=== PATIENT | female | born 1985 | race Caucasian/White ===

== ENCOUNTER 2016-08-19 21:04 | Emergency (ER) | payer OTHER ==
[2016-08-19 21:26] VITALS: BP 109/73; PULSE 94; TEMP 97.6; BMI 43.4
--- NOTE | 2016-08-19 23:25 | PDOC ---
History of Present Illness - General History Source: Patient Exam Limitations: No Limitations - History of Present Illness Initial Comments: 08/19/16 23:50 The patient is a 30 year old female with significant past medical history of anemia and asthma (on albuterol prn, no previous hospital admissions/intubations ) who presents to the ED for multiple complaints. Patient reports about 2-3 months ago she was diagnosed with UTI and was prescribed antibiotics, which she felt did not work and subsequently developed bladder pain and frequency. Denies hematuria and dysuria. She was then prescribed a medication, which she is unsure of the name, and states she noted her urine was orange. 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 Patients reports having 2-3 weeks of diffuse bone pain that is persistent and worse in the lower back, pelvis, and bilateral legs. States taking tylenol and motrin for her symptoms with no improvement. Patient also reports dizziness with blurry vision a couple of weeks ago. At that time, [facility] where she was prescribed meclizine for vertigo. States after taking the meclizine her dizziness has worsen. Patient reports few days of left eye swelling, but no redness. Denies trauma to the area, but states her son has bilateral pink eye. Pt is (s/p 5 spontaneous abortions ranging from 8 to 14 weeks gestation) The patient denies fever, chills, cough, SOB, chest pain, and palpitations. The patient denies abdominal pain, nausea, vomiting, and diarrhea. Allergies: penicillin, azithromycin Social History: Current smoker (2-3 cigarettes daily). No alcohol or drug use reported. Past Surgical History: D&C x4, x1, gastric sleeve (2011), cholecystectomy, tonsillectomy PCP: Dr. Serena Mruray <Cassidy Leone - Last Filed: 08/19/16 23:50> - General History Source: Patient <Preet Sharma - Last Filed: 08/20/16 01:43> - General Chief Complaint: Pain, Acute Stated Complaint: BONES HURT Time Seen by Provider: 08/19/16 23:12 Past History <Cassidy Leone - Last Filed: 08/19/16 23:50> - Past Medical History Anemia: Yes Asthma: Yes Cancer: No Cardiac Disorders: No CVA: No COPD: No CHF: No Dementia: No Diabetes: No GI Disorders: No Disorders: No HTN: No Hypercholesterolemia: No Liver Disease: Yes (FATTY LIVER) Suicide Attempt (Hx): No Seizures: No Thyroid Disease: No - Surgical History Abdominal Surgery: Yes (4 D AND C, GASTRIC SLEEVE 2011) Appendectomy: No Cardiac Surgery: No Cholecystectomy: Yes Lung Surgery: No Neurologic Surgery: No Orthopedic Surgery: No - Immunization History Immunization Up to Date: Yes - Psycho/Social/Smoking Cessation Hx Anxiety: No Suicidal Ideation: No Smoking Status: No Smoking History: Current every day smoker Have you smoked in the past 12 months: No Number of Cigarettes Smoked Daily: 5 If you are a former smoker, when did you quit?: 04/2014 Information on smoking cessation initiated: No Hx Alcohol Use: No Drug/Substance Use Hx: No Substance Use Type: None Hx Substance Use Treatment: No <Preet Sharma - Last Filed: 08/20/16 01:43> - Past Medical History Allergies/Adverse Reactions: Allergies Allergy/AdvReac Type Severity Reaction Status Date / Time Penicillins Allergy Intermediate Rash Verified 08/19/16 21:21 azithromycin Allergy Verified 08/19/16 21:21 shellfish derived Allergy Verified 08/19/16 21:21 Home Medications: Ambulatory Orders Buspirone HCl [Buspar -] 5 mg PO BID 11/11/15 Gabapentin [Neurontin] 300 mg PO ONCE #20 capsule 08/20/16 Oxycodone HCl/Acetaminophen [Percocet 5-325 mg Tablet] 1 - 2 tab PO Q6H #20 tablet MDD 4 08/20/16 Review of Systems - Review of Systems Able to Perform ROS?: Yes Comments:: 08/19/16 23:51 CONSTITUTIONAL: Absent: fever, no chills, no fatigue EYES: +blurry vision, left eye swelling ENT: Absent: ear pain, no sore throat CARDIOVASCULAR: Absent: chest pain, no palpitations RESPIRATORY: Absent: cough, no SOB GI: Absent: abdominal pain, no nausea, no vomiting, no constipation, no diarrhea GENITOURINARY: +frequency, bladder pain Absent: dysuria, no hematuria MUSCULOSKELETAL: +diffuse bone pain SKIN: Absent: rash NEURO: +dizziness Absent: headache <EverarrCassidy starr - Last Filed: 08/19/16 23:50> *Physical Exam - Vital Signs Last Vital Signs Temp Pulse Resp BP Pulse Ox 97.6 F 94 H 16 109/73 100 08/19/16 21:22 08/19/16 21:22 08/19/16 21:22 08/19/16 21:22 08/19/16 21:22 - Physical Exam Comments: 08/19/16 23:51 GENERAL: Well-appearing, well-nourished. No apparent distress. HEENT: Normocephalic, atraumatic. PERRL, EOM intact. Mild swelling over the left eyelid. No injection. No conjunctival pallor. Sclera are non-icteric. CARDIOVASCULAR: Normal S1, S2. Regular rate and rhythm. PULMONARY: Clear to auscultation bilaterally. ABDOMEN: Soft, non-distended, non-tender. EXTREMITIES: Normal ROM in all four extremities. No gross deformities. SKIN: Warm, dry. No rash NEUROLOGICAL: No focal neurological deficits. <Cassidy Leone - Last Filed: 08/19/16 23:50> - Vital Signs Last Vital Signs Temp Pulse Resp BP Pulse Ox 97.6 F 94 H 16 109/73 100 08/19/16 21:22 08/19/16 21:22 08/19/16 21:22 08/19/16 21:22 08/19/16 21:22 <Preet Sharma - Last Filed: 08/20/16 01:43> ED Treatment Course - LABORATORY CBC & Chemistry Diagram: 08/19/16 23:59 08/19/16 23:59 <Preet Sharma - Last Filed: 08/20/16 01:43> Medical Decision Making - Medical Decision Making 08/20/16 01:31 Dr. Sharma: The scribe's documentation has been prepared under my direction and personally reviewed by me in its entirery. I confirm that the note above accurately reflects all work, treatment, procedures, and medical decision making performed by me. <Preet Sharma - Last Filed: 08/20/16 01:43> *DC/Admit/Observation/Transfer - Attestations Scribe Attestion: 08/19/16 23:51 Documentation prepared by Cassidy Leone, acting as medical data analyst for Preet Sharma MD/. <SulemaCassidy - Last Filed: 08/19/16 23:50> - Discharge Dispostion Admit: No <Preet Sharma - Last Filed: 08/20/16 01:43> Diagnosis at time of Disposition: Pain, Neuropathic pain - Discharge Dispostion Disposition: HOME Condition at time of disposition: Stable - Referrals Referrals: Serena Mcfadden MD [Primary Care Provider] - Saad Garcia DO [Staff Physician] - - Patient Instructions Printed Discharge Instructions: Neuropathic Pain Additional Instructions: Please follow up with the neurologist referred to you as soon as possible, along with your primary care. Avoid alcohol when taking any one of the prescribed medication.
[2016-08-20 00:14] LABS: BASOPHIL 0.7 % (0-2.0); EOSINOPHIL 1.9 % (0-4.5); MCH 23.2 pg (25.7-33.7); MCHC 31.2 g/dl (32.0-36.0); MEAN CELL VOLUME 74.4 fl (80-96); MEAN PLT VOLUME 7.3 fl (7.5-11.1); NEUTROPHILS 59.4 % (42.8-82.8); PLATELET COUNT 431 K/MM3 (134-434); RDW 16.8 % (11.6-15.6); WHITE BLOOD COUNT 12.6 K/mm3 (4.0-10.0)
[2016-08-20 00:32] LABS: URINE APPEARANCE CLEAR; URINE BILIRUBIN NEGATIVE (NEGATIVE); URINE COLOR YELLOW; URINE GLUCOSE (UA) NEGATIVE (NEGATIVE); URINE KETONE NEGATIVE (NEGATIVE); URINE LEUK ESTERASE NEGATIVE (NEGATIVE); URINE NITRITE NEGATIVE (NEGATIVE); URINE PROTEIN NEGATIVE (NEGATIVE); URINE UROBILINOGEN NEGATIVE E.U./dl (0.2-1.0)
[2016-08-20 00:37] LABS: ALBUMIN 3.4 g/dl (3.4-5.0); ALK PHOS 105 U/L (45-117); ANION GAP 11 (8-16); BILIRUBIN,TOTAL 0.3 mg/dL (0.2-1.0); CALCIUM 8.4 mg/dL (8.5-10.1); CO2 23 mmol/L (21-32); CREATININE 0.6 mg/dL (0.55-1.02); GLUCOSE,RANDOM 97 mg/dL (74-106); MAGNESIUM 2.1 mg/dL (1.8-2.4); SGPT/ALT 17 U/L (12-78); TOT PROT 7.6 g/dl (6.4-8.2)
[2016-08-20] MEDS ORDERED: carBAMazepine 200 MG TABLET PO ONE (00:38)
[2016-08-20 00:41] LABS: URINE BLOOD 1+ (NEGATIVE)
[2016-08-20 00:42] LABS: SGOT/AST 4 U/L (15-37)
[2016-08-20 00:47] LABS: URINE MUCUS RARE; URINE RBC 1 /hpf (0-3); URINE WBC 1 /hpf (3-5)
[2016-08-20] MEDS ORDERED: carBAMazepine 200 MG TABLET ONE (00:52)
[2016-08-20] MEDS ORDERED: OXYCODONE/APAP 5/325MG COMBO TABLET PO ONE (01:39)
[2016-08-20] MEDS ORDERED: OXYCODONE/APAP 5/325MG COMBO TABLET ONE (01:43)
== END 2016-08-20 01:44 | disposition home or self-care (01) ==
LOC: JER 21:04 → JERFT 21:04 → JER 08-20 01:44
DX: M79.2 Neuralgia and neuritis, unspecified (principal); H02.846 Edema of left eye, unspecified eyelid
CPT/HCPCS: 36415; 80053; 81003; 81015; 83735; 84703; 85025; 87086; 99283-25

== ENCOUNTER 2017-12-12 12:46 | Day surgery (SDC) | payer OTHER ==
--- NOTE | 2017-12-12 12:30 | HP ---
History & Physical Update - History History: No Change - Physical Physical: No Change - Assessment Assessment: No Change - Plan Plan: No Change
[~2017-12-12 12:46] MED LIST: ACETAMINOPHEN 325 MG TABLET (FP) PO PRN; IBUPROFEN 400 MG TABLET (FP) PO PRN; oxyCODONE HCL 5 MG TABLET PO PRN
[2017-12-12 13:17] VITALS: BMI 45.7
[2017-12-12 13:57] LABS: BASO % 0.8 % (0-2.0); EOS % 1.7 % (0-4.5); HEMATOCRIT 36.3 % (32.4-45.2); HEMOGLOBIN 11.3 GM/dL (10.7-15.3); MEAN CELL VOLUME 77.4 fl (80-96); MEAN PLT VOLUME 7.3 fl (7.5-11.1); MONO % 3.8 % (3.8-10.2); NEUT % 63.7 % (42.8-82.8); PLATELET COUNT 428 K/MM3 (134-434); RBC 4.69 M/mm3 (3.60-5.2); RDW 14.9 % (11.6-15.6); WHITE BLOOD COUNT 11.8 K/mm3 (4.0-10.0)
[2017-12-12] MEDS ORDERED: PROPOFOL 20 ML ONE (15:06)
[2017-12-12] MEDS ORDERED: LIDOCAINE HCL/PF 2% SDV 5ML VIAL ONE (15:06)
[2017-12-12] MEDS ORDERED: MIDAZOLAM HCL 2 MG/2 ML SINGLE DOSE VIAL ONE (15:06)
[2017-12-12] MEDS ORDERED: DEXAMETHASONE SOD PHOSPHATE 4 MG/1 ML VIAL ONE (15:06)
[2017-12-12] MEDS ORDERED: SUCCINYLCHOLINE CHLORIDE 200 MG/10 ML VIAL ONE (15:09)
[2017-12-12] MEDS ORDERED: ONDANSETRON 4 MG/2 ML VIAL IVPUSH PRN (15:36)
[2017-12-12] MEDS ORDERED: LACTATED RINGERS SOLUTION 1,000 ML IV SCH (15:45)
--- NOTE | 2017-12-12 15:54 | OP ---
Operative Note - Note: Operative Date: 12/12/17 Pre-Operative Diagnosis: Menorrhagia Operation: Hysteroscopy. Suction DC Findings: small endo polps Post-Operative Diagnosis: Same as Pre-op Surgeon: Arlene Benito Anesthesia: General Estimated Blood Loss (mls): 10 Operative Report Dictated: Yes
[2017-12-12] MEDS ORDERED: ALBUTEROL SO4 0.083% IH SOL 2.5 MG/3 ML VIAL.NEB. NEB PRN (16:05)
[2017-12-12] MEDS ORDERED: ONDANSETRON 4 MG/2 ML VIAL ONE (16:06)
[2017-12-12 18:51] VITALS: BP 112/68; PULSE 88; TEMP 98.1
--- NOTE | 2017-12-12 19:13 | OP ---
DATE OF OPERATION: 12/12/2017 PREOPERATIVE DIAGNOSIS: Menorrhagia. OPERATION: Hysteroscopy, dilatation and curettage. POSTOPERATIVE DIAGNOSIS: Small endometrial polyps. SURGEON: Arlene Benito MD ANESTHESIA: General. NURSE ARCHITECTURAL REPRESENTATIVE: JEREMIAH Wallis PROCEDURE: Patient was taken to the operating room, placed in dorsal lithotomy position, prepped and draped in the usual sterile fashion. A timeout was performed in accordance with hospital regulations. Speculum was placed in vagina. Anterior lip of the cervix was grasped with a single-tooth tenaculum. Hysteroscope was then introduced into the cervix. Hysteroscopy was done. Small endometrial polyps were seen. Suction D&C was then performed. Contents were submitted to pathology. Patient had tolerated the procedure well. All instruments then removed. Estimated blood loss: 10 mL. ARLENE BNEITO M.D. IKER/[id number]
--- NOTE | 2017-12-14 17:59 | PATH ---
Surgical Pathology Report Patient Name: JIMI VALDEZ [facility]. Rec. #: [id number] /Age/Gender: 1985 (Age: 32) / F Account: [id number] Location: [facility] Taken: 12/12/2017 Received: 12/13/2017 Reported: 12/14/2017 Physicians: Arlene Benito M.D. Specimen(s) Received ENDOMETRIAL CURETTINGS Clinical History Dysfunctional uterine bleeding Final Diagnosis ENDOMETRIAL CURETTINGS, DILATION AND CURETTAGE: FRAGMENTS OF PROLIFERATIVE ENDOMETRIUM AND BENIGN CERVICAL TISSUE. SCANT RESIDUAL DECIDUA WITH MILD ACUTE INFLAMMATION. Electronically Signed Elena Chand M.D. Gross Description Received in formalin labeled "endometrial curetting," is a 2.0 x 1.7 x 0.2 cm aggregate of patino soft tissue fragments. The formalin is filtered and the specimen is entirely submitted in one cassette. /12/13/2017 saudi/12/13/2017
== END 2017-12-12 18:40 | disposition home or self-care (01) ==
LOC: JASU-SURG 12:46
PROVIDERS: ATTEND Obstetrics & Gynecology
PROC: 0UDB8ZX Extraction of Endometrium, Via Natural or Artificial Opening Endoscopic, Diagnostic (ICD-10-PCS; principal; 2017-12-12 14:15)
DX: N92.0 Excessive and frequent menstruation with regular cycle (principal); N84.0 Polyp of corpus uteri
CPT/HCPCS: 36415; 84703; 85025; 88305-TC; 94760

== ENCOUNTER 2018-07-06 09:13 | Day surgery (SDC) | payer OTHER ==
[2018-07-06 09:51] LABS: BASO % 0.7 % (0-2.0); EOS % 2.1 % (0-4.5); HEMATOCRIT 33.8 % (32.4-45.2); HEMOGLOBIN 10.7 GM/dL (10.7-15.3); LYMPH % 24.9 % (8-40); MCH 24.1 pg (25.7-33.7); MCHC 31.5 g/dl (32.0-36.0); MEAN CELL VOLUME 76.5 fl (80-96); MONO % 4.8 % (3.8-10.2); NEUT % 67.5 % (42.8-82.8); PLATELET COUNT 341 K/MM3 (134-434); RBC 4.42 M/mm3 (3.60-5.2); RDW 15.5 % (11.6-15.6); WHITE BLOOD COUNT 8.3 K/mm3 (4.0-10.0)
[2018-07-06 10:09] VITALS: BMI 44.3
--- NOTE | 2018-07-06 10:19 | HP ---
Admitting History and Physical - Admission Chief Complaint: Abnormal bleeding for 3 months History of Present Illness: 32 y/o P2 female with h/o irregular menses who has had hysteroscopic polypectomy /myomectomy in late 2017 presented to office with complaints of bleeding at least 2x/month, heavy, with clots since March. Pt started on OCPS with little resolution after 1 month, here for D&C procedure. Limitations to Obtaining History: No Limitations - Past Medical History Pulmonary: Yes: Asthma (well controlled). No: COPD, Pneumonia, Sleep Apnea Gastrointestinal: Yes: Other (y/o gastric sleeve). No: Constipation, Gastritis , GERD, Inflamatory Bowel Disease, Irritable Bowel Disease Reproductive: No: Ectopic ...LMP: 06/08/18 ...: No ...Para: 2 Psych: Yes: Anxiety, Depression. No: Addictions, Panic, Schizophrenia Additional Past Medical History: Mononucleosis - chronic - Past Surgical History Past Surgical History: Yes: Cholecystectomy. No: Appendectomy - Smoking History Smoking history: Current every day smoker Have you smoked in the past 12 months: Yes Aproximately how many cigarettes per day: 5 If you are a former smoker, when did you quit?: 04/2014 - Alcohol/Substance Use Hx Alcohol Use: No History of Substance Use: reports: None - Social History ADL: Independent History of Recent Travel: No Home Medications - Allergies Allergies/Adverse Reactions: Allergies Allergy/AdvReac Type Severity Reaction Status Date / Time Penicillins Allergy Intermediate Rash Verified 12/12/17 13:19 azithromycin Allergy Verified 12/12/17 13:19 shellfish derived Allergy Verified 12/12/17 13:19 all antibiotics Allergy Uncoded 12/12/17 13:19 - Home Medications Home Medications: Ambulatory Orders Albuterol 2.5/Ipratropium 0.5 [Duoneb -] 1 neb IH QID 07/06/18 Albuterol Sulfate Inhaler - [Ventolin Hfa Inhaler -] 1 - 2 inh PO QID PRN Aspirin/Acetaminophen/Caffeine [Excedrin Migraine Caplet] 1 each PO PRN Bcp 1 tab PO DAILY 07/06/18 Guaifenesin [Mucinex] 600 mg PO DAILY 07/06/18 Family Disease History - Family Disease History Family Disease History: Diabetes: Mother (living, asthma, rheumatoid arthritis) , Heart Disease: Brother (three, asthma, htn), Sister (seven, one with renal issues), Other: Father (living, hep C, ), Mother, Brother, Sister, Son (age 13 - asthma), Daughter (age 3 - asthma) Physical Examination Vital Signs: Vital Signs Temperature 97.8 F 07/06/18 10:14 Pulse Rate 87 07/06/18 10:14 Respiratory Rate 20 07/06/18 10:14 Blood Pressure 112/71 07/06/18 10:14 O2 Sat by Pulse Oximetry (%) 99 07/06/18 10:15 Constitutional: Yes: Well Nourished, No Distress, Calm Neck: Yes: Supple, Trachea Midline Gastrointestinal: Yes: Soft. No: Tenderness Renal/: Yes: Vaginal Bleeding Edema: No Neurological: Yes: Alert, Oriented Psychiatric: Yes: Alert, Oriented Labs: CBC, BMP 07/06/18 09:40 Problem List - Problems (1) Abnormal uterine bleeding (AUB) Code(s): N93.9 - ABNORMAL UTERINE AND VAGINAL BLEEDING, UNSPECIFIED Assessment/Plan For suction D&C procedure explained to pt R/b/A discussed informed consent signed f/u 2 weeks post op
[2018-07-06 10:35] LABS: ALBUMIN 3.4 g/dl (3.4-5.0); ALK PHOS 95 U/L (45-117); ANION GAP 8 MMOL/L (8-16); BILIRUBIN,TOTAL 0.5 mg/dL (0.2-1); BLOOD UREA NITROGEN 9 mg/dL (7-18); CALCIUM 8.7 mg/dL (8.5-10.1); CHLORIDE 108 mmol/L (98-107); CO2 22 mmol/L (21-32); CREATININE 0.8 mg/dL (0.55-1.3); GLUCOSE,RANDOM 81 mg/dL (74-106); POTASSIUM 4.5 mmol/L (3.5-5.1); SGOT/AST 19 U/L (15-37); SGPT/ALT 20 U/L (13-61); SODIUM 138 mmol/L (136-145)
[2018-07-06 10:43] LABS: URINE APPEARANCE BLOODY; URINE COLOR RED
[2018-07-06 10:55] LABS: EPI CELLS OCC /HPF (0-5/HPF); URINE BACTERIA OCC /hpf (NEGATIVE); URINE RBC >100 /hpf (0-4)
[2018-07-06] MEDS ORDERED: SUMAtriptan SUCCINATE 50 MG TABLET PO SCH (11:15)
[2018-07-06] MEDS ORDERED: IBUPROFEN 800 MG/8 ML IJ IVPB PRN (12:25)
[2018-07-06] MEDS ORDERED: LACTATED RINGERS SOLUTION 1,000 ML IV SCH (12:30)
[2018-07-06] MEDS ORDERED: oxyCODONE HCL 5 MG TABLET PO PRN ×2 (13:03)
[2018-07-06] MEDS ORDERED: ONDANSETRON 4 MG/2 ML VIAL IVPUSH PRN (13:03)
[2018-07-06 14:48] VITALS: BP 111/70; PULSE 67; TEMP 98.2
--- NOTE | 2018-07-10 14:42 | OP ---
Operative Note - Note: Operative Date: 07/06/18 (dictation [id number]) Pre-Operative Diagnosis: AUB Operation: D&C Findings: normal female genitalia Post-Operative Diagnosis: Same as Pre-op Surgeon: Courtney Branch Anesthesiologist/SALES ACTIVITY MANAGER: Jeff Garcia Anesthesia: General (with LMA) Specimens Removed: endometrial curettings Estimated Blood Loss (mls): 5 Operative Report Dictated: Yes
--- NOTE | 2018-07-11 09:06 | PATH ---
Surgical Pathology Report Patient Name: JIMI VALDEZ [facility]. Rec. #: [id number] /Age/Gender: 1985 (Age: 32) / F Account: [id number] Location: [facility] Taken: 07/06/2018 Received: 07/07/2018 Reported: 07/11/2018 Physicians: Courtney Branch M.D. Specimen(s) Received ENDOMETRIAL CURETTINGS Clinical History Abnormal bleeding Final Diagnosis ENDOMETRIAL CURETTINGS, DILATION AND CURETTAGE: SECRETORY ENDOMETRIUM WITH GLANDULAR AND STROMAL BREAK DOWN. BENIGN ENDOCERVICAL MUCOSA WITH SQUAMOUS METAPLASIA AND BENIGN CERVICAL SQUAMOUS MUCOSA. Electronically Signed Elena Chand M.D. Gross Description Received in formalin labeled "endometrial curettings" are multiple fragments of pink-patino tissue measuring 0.8 x 0.5 x 0.2 cm in aggregate. Entire specimen submitted in one cassette. MLSZ/07/07/2018 sanml/07/07/2018
--- NOTE | 2018-07-11 17:01 | OP ---
DATE OF OPERATION: 07/06/2018 PREOPERATIVE DIAGNOSIS: Abnormal uterine bleeding. POSTOPERATIVE DIAGNOSIS: Abnormal uterine bleeding. PROCEDURE: Suction dilation and curettage. ANESTHESIA: MAC by Jeff Garcia CRNA and ESTIMATED BLOOD LOSS: 5 mL. COMPLICATIONS: None. SPECIMENS REMOVED: Endometrial curettings. DISPOSITION: Stable to PACU. COUNTS: Sponge and instrument count correct at the end of the procedure. HISTORY AND PROCEDURE: The patient is a 32-year-old female with a long-standing history of abnormal uterine bleeding, who was seen in the office and failed medical management, was set up for a dilation and curettage. The patient signed consents for the procedure upon admission on July 06, 2018. She was then taken back to the operating room, given LMA anesthesia and placed in the dorsal lithotomy position. Her cervix was grasped with a tenaculum and dilated to accommodate a size 7 suction curette, which was advanced to the fundus of the uterus. Multiple passes of the suction curette were completed, and sharp curettage was completed in all 4 jarrett of the uterus until adequate uterine cry was noted. One final pass with the suction curette was completed to remove all detached tissue. Minimal bleeding was noted from the cervical os. The tenaculum was removed. Minimal bleeding was noted from the tenaculum sites, and all instruments were removed from the vagina. The patient was awoken from anesthesia in stable condition. Sponge and instrument counts correct. The patient was recovering in stable condition in the PACU after the procedure. ALONZO BECKWITH DO /[id number]
== END 2018-07-06 14:45 | disposition home or self-care (01) ==
LOC: JASU-SURG 09:13
PROVIDERS: ATTEND Obstetrics & Gynecology
PROC: 0UDB7ZX Extraction of Endometrium, Via Natural or Artificial Opening, Diagnostic (ICD-10-PCS; principal; 2018-07-06 12:00)
DX: N93.8 Other specified abnormal uterine and vaginal bleeding (principal)
CPT/HCPCS: 36415; 80053; 81003; 84702; 85025; 86850; 86900; 86901; 88305-TC; 94760

== ENCOUNTER 2020-04-16 19:25 | Emergency (ER) | payer OTHER ==
[2020-04-16 19:44] VITALS: BP 120/80; PULSE 90; TEMP 98.3; BMI 31.3
== END 2020-04-16 21:42 | disposition home or self-care (01) ==
LOC: JER 19:25
DX: F41.1 Generalized anxiety disorder (principal); F32.3 Major depressive disorder, single episode, severe with psychotic features; R53.1 Weakness
CPT/HCPCS: 82962; 99283-25

== ENCOUNTER 2021-05-13 13:53 | Emergency (ER) | payer OTHER ==
[2021-05-13 14:22] VITALS: BP 110/74; PULSE 60; TEMP 98.6; BMI 39.0
[2021-05-13] MEDS ORDERED: ACETAMINOPHEN 1000 MG/100 ML BAG IVPB ONE (15:42)
[2021-05-13] MEDS ORDERED: KETOROLAC TROMETHAMINE 30 MG/1 ML VIAL IVPUSH ONE (15:42)
[2021-05-13] MEDS ORDERED: PANTOPRAZOLE SODIUM 40 MG VIAL IVPB ONE (15:42)
[2021-05-13] MEDS ORDERED: ONDANSETRON 4 MG/2 ML VIAL IVPUSH ONE (15:42)
[2021-05-13] MEDS ORDERED: ACETAMINOPHEN INJECTION 100 ML IVPB ONE (15:51)
[2021-05-13] MEDS ORDERED: KETOROLAC TROMETHAMINE 30 MG/1 ML VIAL ONE (15:51)
[2021-05-13] MEDS ORDERED: PANTOPRAZOLE SODIUM 40 MG/100 ML BAG IVPB ONE (15:51)
[2021-05-13] MEDS ORDERED: ONDANSETRON 4 MG/2 ML VIAL ONE (15:52)
[2021-05-13] MEDS ORDERED: SODIUM CHLORIDE 0.9% 500 ML INFUS.BAG IV ONE (16:26)
[2021-05-13] MEDS ORDERED: predniSONE 20 MG TABLET (UD) PO ONE (16:26)
[2021-05-13] MEDS ORDERED: ALBUTEROL SO4 HFA INHALER IH ONE ×2 (16:26→16:38)
[2021-05-13] MEDS ORDERED: predniSONE 20 MG TABLET (UD) ONE (16:38)
[2021-05-13] MEDS ORDERED: ALBUTEROL SO4 2.5/IPRATROPIUM 0.5 INH SOL 3 ML VIAL.NEB. NEB ONE (16:49)
[2021-05-13] MEDS: ALBUTEROL SO4 2.5/IPRATROPIUM 0.5 INH SOL 3 ML VIAL.NEB. NEB SCH ×4 (16:57→17:36)
[2021-05-13 17:59] LABS: CALCIUM 8.6 mg/dL (8.5-10.1)
[2021-05-13 18:00] LABS: ALBUMIN 3.1 g/dl (3.4-5.0); BLOOD UREA NITROGEN 7.9 mg/dL (7-18)
[2021-05-13 18:01] LABS: EPI CELLS 30 /uL (0-25.1); HYALINE CASTS 0 /uL (0-3.1); URINE APPEARANCE CLEAR; URINE BACTERIA 261 /uL (0-1359); URINE BILIRUBIN NEGATIVE (NEGATIVE); URINE COLOR YELLOW; URINE GLUCOSE (UA) NEGATIVE (NEGATIVE); URINE KETONE NEGATIVE (NEGATIVE); URINE LEUK ESTERASE NEGATIVE (NEGATIVE); URINE NITRITE NEGATIVE (NEGATIVE); URINE PROTEIN 1+ (NEGATIVE); URINE RBC 3 /uL (0-23.9); URINE UROBILINOGEN 0.2 mg/dL (0.2-1.0); URINE WBC 18 /uL (0-25.8)
[2021-05-13 18:03] LABS: CREATININE 1.1 mg/dL (0.55-1.3)
[2021-05-13 18:04] LABS: BILIRUBIN,TOTAL 0.4 mg/dL (0.2-1); TOT PROT 7.4 g/dl (6.4-8.2)
[2021-05-13 20:18] LABS: BASO % 0.2 % (0-2.0); EOS % 1.2 % (0-4.5); HEMATOCRIT 28.9 % (32.4-45.2); HEMOGLOBIN 9.2 GM/dL (10.7-15.3); MCHC 31.7 g/dl (32.0-36.0); MEAN CELL VOLUME 69.4 fl (80-96); MEAN PLT VOLUME 6.7 fl (7.5-11.1); MONO % 2.6 % (3.8-10.2); PLATELET COUNT 390 10^3/uL (134-434); RBC 4.17 M/mm3 (3.60-5.2); RDW 19.6 % (11.6-15.6); WHITE BLOOD COUNT 12.4 K/mm3 (4.0-10.0)
[2021-05-13 20:57] LABS: ANISOCYTOSIS 3+; MACROCYTOSIS 0; TARGET CELLS 1+
== END 2021-05-13 21:36 | disposition home or self-care (01) ==
LOC: JER 13:53
PROC: 3E033GC Introduction of Other Therapeutic Substance into Peripheral Vein, Percutaneous Approach (ICD-10-PCS; principal; 2021-05-13)
PROC: 3E0F7GC Introduction of Other Therapeutic Substance into Respiratory Tract, Via Natural or Artificial Opening (ICD-10-PCS; 2021-05-13)
DX: R10.84 Generalized abdominal pain (principal)
CPT/HCPCS: 36415; 74176-TC; 80053; 81003; 83690; 84132; 84703; 85025; 87086; 99285-25

== ENCOUNTER 2021-08-24 15:12 | Emergency (ER) | payer OTHER ==
[2021-08-24 15:30] VITALS: BP 105/65; PULSE 94; TEMP 98.3; BMI 38.7
[2021-08-24 16:29] LABS: INR 1.06 (0.83-1.09); PROTHROMBIN TIME (PATIENT) 12.2 SEC (9.7-13.0)
[2021-08-24 16:39] LABS: BASO % 0.4 % (0-2.0); HEMATOCRIT 26.9 % (32.4-45.2); HEMOGLOBIN 8.5 GM/dL (10.7-15.3); MCHC 31.5 g/dl (32.0-36.0); MEAN CELL VOLUME 66.6 fl (80-96); MEAN PLT VOLUME 6.9 fl (7.5-11.1); MONO % 6.3 % (3.8-10.2); NEUT % 68.3 % (42.8-82.8); PLATELET COUNT 392 10^3/uL (134-434); RBC 4.04 M/mm3 (3.60-5.2); RDW 19.2 % (11.6-15.6); WHITE BLOOD COUNT 13.2 K/mm3 (4.0-10.0)
[2021-08-24 16:43] LABS: ALBUMIN 3.2 g/dl (3.4-5.0); BLOOD UREA NITROGEN 7.6 mg/dL (7-18); CALCIUM 8.5 mg/dL (8.5-10.1)
[2021-08-24 16:47] LABS: CREATININE 0.8 mg/dL (0.55-1.3)
[2021-08-24 16:48] LABS: BILIRUBIN,TOTAL 0.3 mg/dL (0.2-1); TOT PROT 6.9 g/dl (6.4-8.2)
[2021-08-24 17:50] LABS: ANISOCYTOSIS 2+; MACROCYTOSIS 0; TARGET CELLS 1+
[2021-08-24] MEDS ORDERED: ALBUTEROL SO4 2.5/IPRATROPIUM 0.5 INH SOL 3 ML VIAL.NEB. NEB ONE (19:01)
== END 2021-08-24 19:36 | disposition home or self-care (01) ==
LOC: JER 15:12 → JERFT 15:12 → JER 19:36
DX: M79.662 Pain in left lower leg (principal); J45.40 Moderate persistent asthma, uncomplicated
CPT/HCPCS: 36415; 71275-TC; 73590-TC-LT-FY; 73630-TC-LT; 80053; 84703; 85025; 85379; 85610; 85730; 93005; 93010; 93971-TC; 99285-25

== ENCOUNTER 2021-08-28 19:56 | Emergency (ER) | payer OTHER ==
[2021-08-28 20:07] VITALS: BP 139/73; PULSE 82; TEMP 97; BMI 40.0
== END 2021-08-28 22:51 | disposition left against medical advice (07) ==
LOC: JERFT 19:56
DX: M79.605 Pain in left leg (principal)
CPT/HCPCS: 99281-25

== ENCOUNTER 2022-05-02 20:28 | Inpatient (IN) | payer OTHER ==
[2022-05-02 20:45] VITALS: BMI 33.4
[2022-05-02] MEDS ORDERED: ACETAMINOPHEN 1000 MG/100 ML BAG IVPB ONE (21:35)
[2022-05-02] MEDS ORDERED: ACETAMINOPHEN INJECTION 100 ML IVPB ONE (22:32)
[2022-05-02] MEDS ORDERED: APIXABAN 5 MG TABLET ONE (22:35)
[2022-05-02] MEDS ORDERED: APIXABAN 5 MG TABLET PO ONE (22:35)
[2022-05-02 22:57] LABS: BASO % 0.8 % (0-2.0); EOS % 2.3 % (0-4.5); HEMATOCRIT 38.7 % (32.4-45.2); HEMOGLOBIN 12.6 GM/dL (10.7-15.3); LYMPH % 41.6 % (8-40); MCH 27.6 pg (25.7-33.7); MCHC 32.6 g/dl (32.0-36.0); MEAN CELL VOLUME 84.7 fl (80-96); MEAN PLT VOLUME 7.7 fl (7.5-11.1); MONO % 4.2 % (3.8-10.2); NEUT % 51.1 % (42.8-82.8); PLATELET COUNT 354 10^3/uL (134-434); RBC 4.56 M/mm3 (3.60-5.2); RDW 14.9 % (11.6-15.6); WHITE BLOOD COUNT 8.9 K/mm3 (4.0-10.0)
[2022-05-02 23:05] LABS: INR 1.5 (0.83-1.09); PROTHROMBIN TIME (PATIENT) 17.3 SEC (9.7-13.0)
[2022-05-02 23:08] LABS: ACTIVATED PTT 33.2 SECONDS (25.2-36.5)
[2022-05-02 23:27] LABS: CHLORIDE 108 mmol/L (98-107); SODIUM 137 mmol/L (136-145)
[2022-05-02 23:29] LABS: ALBUMIN 3.3 g/dl (3.4-5.0); CALCIUM 8.8 mg/dL (8.5-10.1); CO2 26 mmol/L (21-32); GLUCOSE,RANDOM 79 mg/dL (74-106)
[2022-05-02 23:32] LABS: CREATININE 0.7 mg/dL (0.55-1.3); SGOT/AST 70 U/L (15-37)
[2022-05-02] MEDS ORDERED: morphine CARPU-JECT 4 MG/1 ML DISP.SYRIN IVPUSH ONE (23:33)
[2022-05-02 23:34] LABS: BILIRUBIN,TOTAL 0.5 mg/dL (0.2-1); TOT PROT 7.6 g/dl (6.4-8.2)
[2022-05-02 23:35] LABS: ALK PHOS 93 U/L (45-117)
[2022-05-02] MEDS ORDERED: morphine SULFATE 4 MG/ML VIAL ONE (23:40)
[2022-05-02 23:59] LABS: ANION GAP 4 MMOL/L (8-16); POTASSIUM 6.1 mmol/L (3.5-5.1); SGPT/ALT 24 U/L (13-61)
[2022-05-03] MEDS ORDERED: HEPARIN NA (PORCINE) 5,000 UNITS/ML 1ML VIAL IVPUSH ONE (00:19)
[2022-05-03] MEDS ORDERED: HEPARIN NA (PORCINE) 5,000 UNITS/ML 1ML VIAL IVPUSH PRN ×2 (00:25)
[2022-05-03] MEDS ORDERED: morphine CARPU-JECT 2 MG/1 ML DISP.SYRIN IVPUSH ONE ×2 (00:26→03:26)
[2022-05-03] MEDS ORDERED: HEPARIN INFUSION - 25,000 UNITS/500 ML INFUS.BAG IVPB SCH (00:30)
[2022-05-03] MEDS ORDERED: HEPARIN NA (PORCINE) 5,000 UNITS/ML 1ML VIAL ONE (01:17)
[2022-05-03] MEDS ORDERED: HEPARIN INFUSION - 25,000 UNITS/500 ML INFUS.BAG IVPB ONE (01:17)
[2022-05-03] MEDS ORDERED: SODIUM CHLORIDE 0.9% 500 ML INFUS.BAG IV ONE (03:26)
[2022-05-03 04:07] LABS: POTASSIUM 3.3 mmol/L (3.5-5.1)
[2022-05-03 04:09] LABS: ALBUMIN 3.4 g/dl (3.4-5.0); BLOOD UREA NITROGEN 7.6 mg/dL (7-18); CALCIUM 8.7 mg/dL (8.5-10.1)
[2022-05-03 04:12] LABS: CREATININE 0.7 mg/dL (0.55-1.3)
[2022-05-03 04:14] LABS: BILIRUBIN,TOTAL 0.5 mg/dL (0.2-1); TOT PROT 7.3 g/dl (6.4-8.2)
[2022-05-03] MEDS ORDERED: POTASSIUM CHLORIDE TABS 20 MEQ TABLET.ER (FP) PO ONE ×3 (05:58→10:52)
[2022-05-03] MEDS ORDERED: ALBUTEROL SO4 HFA INHALER IH PRN (06:01)
[2022-05-03] MEDS ORDERED: clonazePAM 0.5 MG TABLET PO PRN (06:01)
[2022-05-03] MEDS ORDERED: CYANOCOBALAMIN 1,000 MCG TABLET (FP) PO SCH (10:00)
[2022-05-03] MEDS ORDERED: POTASSIUM CHLORIDE TABS 10 MEQ TABLET.ER (FP) PO SCH (10:00)
[2022-05-03] MEDS ORDERED: FLUTICASONE/SALMETEROL 100 MCG/50 MCG DISKUS IH SCH (10:00)
[2022-05-03] MEDS ORDERED: FERROUS SO4 325 MG TABLET (FP) PO SCH (10:00)
[2022-05-03] MEDS ORDERED: PANTOPRAZOLE 40 MG TABLET PO SCH (10:00)
[2022-05-03] MEDS ORDERED: MAGNESIUM OXIDE 400 MG TABLET (FP) PO SCH (10:00)
[2022-05-03] MEDS ORDERED: ALBUTEROL SO4 2.5/IPRATROPIUM 0.5 INH SOL 3 ML VIAL.NEB. NEB ONE ×2 (10:51→13:58)
[2022-05-03] MEDS ORDERED: PANTOPRAZOLE 40 MG TABLET PO ONE (10:51)
[2022-05-03] MEDS ORDERED: FERROUS SO4 325 MG TABLET (FP) ONE (10:52)
[2022-05-03] MEDS ORDERED: MAGNESIUM OXIDE 400 MG TABLET (FP) ONE (10:52)
[2022-05-03] MEDS: ALBUTEROL SO4 2.5/IPRATROPIUM 0.5 INH SOL 3 ML VIAL.NEB. NEB SCH ×3 (11:06→18:01)
[2022-05-03 11:24] VITALS: RESP 18; TEMP 98
[2022-05-03] MEDS ORDERED: GABAPENTIN 400 MG CAPSULE ONE (13:58)
[2022-05-03] MEDS ORDERED: GABAPENTIN 400 MG CAPSULE PO SCH (14:00)
[2022-05-03 17:46] VITALS: BP 106/74; PULSE 79
[2022-05-03] MEDS ORDERED: QUEtiapine FUMARATE 25 MG TABLET PO SCH (22:00)
[2022-05-03] MEDS ORDERED: MONTELUKAST NA 10 MG TABLET PO SCH (22:00)
[2022-05-05] MEDS ORDERED: ERGOCALCIFEROL (VIT D2) 50,000 UNIT (1.25 MG) CAPSULE PO SCH (10:00)
== END 2022-05-03 22:51 | disposition left against medical advice (07) | DRG 197 ==
LOC: JER 20:28 → JERBED 05-03 03:20
PROVIDERS: ADMIT Internal Medicine
DX: I82.412 Acute embolism and thrombosis of left femoral vein (principal); M79.7 Fibromyalgia; J44.9 Chronic obstructive pulmonary disease, unspecified; G89.29 Other chronic pain; F41.8 Other specified anxiety disorders; G54.7 Phantom limb syndrome without pain; K21.9 Gastro-esophageal reflux disease without esophagitis; F17.200 Nicotine dependence, unspecified, uncomplicated; Z98.84 Bariatric surgery status; E66.9 Obesity, unspecified; Z68.33 Body mass index [BMI] 33.0-33.9, adult; Z89.612 Acquired absence of left leg above knee
CPT/HCPCS: 0241U-QW; 36415; 71045-TC-FY; 71275-TC; 74174-TC; 80053; 84484; 84703; 85025; 85610; 85730; 93005; 93010; 93970-TC; 99285-25; J1644; Q9967

== ENCOUNTER 2022-06-06 17:11 | Emergency (ER) | payer OTHER ==
[2022-06-06 17:22] VITALS: BP 100/72; PULSE 74; RESP 18; TEMP 98; BMI 39.0
[2022-06-06] MEDS ORDERED: ACETAMINOPHEN 1000 MG/100 ML BAG IVPB ONE (17:37)
[2022-06-06 18:19] LABS: BASO % 0.9 % (0-2.0); EOS % 1.5 % (0-4.5); HEMATOCRIT 37.6 % (32.4-45.2); HEMOGLOBIN 12.6 GM/dL (10.7-15.3); LYMPH % 27.4 % (8-40); MCH 28.8 pg (25.7-33.7); MCHC 33.5 g/dl (32.0-36.0); MEAN CELL VOLUME 85.8 fl (80-96); MEAN PLT VOLUME 8.1 fl (7.5-11.1); MONO % 4.6 % (3.8-10.2); NEUT % 65.6 % (42.8-82.8); PLATELET COUNT 335 10^3/uL (134-434); RBC 4.38 M/mm3 (3.60-5.2); RDW 14.3 % (11.6-15.6); WHITE BLOOD COUNT 9.2 K/mm3 (4.0-10.0)
[2022-06-06 18:27] LABS: INR 1.75 (0.83-1.09); PROTHROMBIN TIME (PATIENT) 20.2 SEC (9.7-13.0)
[2022-06-06 18:30] LABS: ACTIVATED PTT 35.9 SECONDS (25.2-36.5)
[2022-06-06 18:37] LABS: ALBUMIN 3.4 g/dl (3.4-5.0); CALCIUM 9.2 mg/dL (8.5-10.1)
[2022-06-06] MEDS ORDERED: SODIUM CHLORIDE 0.9% 500 ML INFUS.BAG IV ONE (18:37)
[2022-06-06 18:41] LABS: CREATININE 0.7 mg/dL (0.55-1.3)
[2022-06-06 18:42] LABS: BILIRUBIN,TOTAL 0.7 mg/dL (0.2-1); TOT PROT 7.3 g/dl (6.4-8.2)
[2022-06-06] MEDS ORDERED: ACETAMINOPHEN INJECTION 100 ML IVPB ONE (18:50)
== END 2022-06-06 20:50 | disposition home or self-care (01) ==
LOC: JER 17:11
PROC: 3E033NZ Introduction of Analgesics, Hypnotics, Sedatives into Peripheral Vein, Percutaneous Approach (ICD-10-PCS; principal; 2022-06-06)
DX: N93.9 Abnormal uterine and vaginal bleeding, unspecified (principal); R06.02 Shortness of breath; R07.2 Precordial pain; M54.50 Low back pain, unspecified; R42 Dizziness and giddiness; R53.1 Weakness; Z20.822 Contact with and (suspected) exposure to COVID-19
CPT/HCPCS: 36415; 80053; 84484; 84703; 85025; 85610; 85730; 93005; 93010; 99284-25; C9803-CS; U0003; U0005